=== PATIENT | male | born 1995 | race African-American/Black ===

== ENCOUNTER 2022-12-20 12:29 | Emergency (ER) | payer MEDICAID ==
[~2022-12-20] VITALS: Ht 172.7 cm; Wt 135.4 kg
[2022-12-20 12:45] VITALS: BP 154/92
[2022-12-20 14:00] LABS: CLARITY URINE CLEAR (CLEAR); COLOR URINE YELLOW (YELLOW); KETONES URINE NEGATIVE (NEGATIVE); LEUKOCYTE ESTERASE URINE TRACE (NEGATIVE); NITRITE URINE NEGATIVE (NEGATIVE); OCCULT BLOOD URINE NEGATIVE (NEGATIVE); PH URINE 5.5 (4.5-8.0); PROTEIN URINE NEGATIVE (NEGATIVE); SPECIFIC GRAVITY URINE 1.026 (1.005-1.030)
== END 2022-12-20 15:15 | disposition home or self-care (01) ==
LOC: ER 12:29
DX: R30.0 Dysuria (principal); J45.909 Unspecified asthma, uncomplicated; Z98.890 Other specified postprocedural states
CPT/HCPCS: 81003; 99283